=== PATIENT | male | born 1975 | race Hispanic/Latino ===

== ENCOUNTER 2021-04-03 13:47 | Emergency (ER) | payer SELFPAY ==
[2021-04-03] MEDS ORDERED: DIPHENHYDRAMINE 50 MG/ML VIAL ONE (14:31)
[2021-04-03] MEDS ORDERED: FAMOTIDINE 20 MG/2 ML VIAL IV ONE (14:31)
[2021-04-03] MEDS ORDERED: dexAMETHasone 10 MG/ML VIAL ONE (14:31)
[2021-04-03] MEDS ORDERED: NA CHLORIDE 0.9% 1,000 ML ONE (14:34)
[2021-04-03] MEDS ORDERED: METHYLPREDNISOLONE 125 MG INJ ONE (14:35)
[2021-04-03] MEDS ORDERED: ONDANSETRON 4 MG/2 ML VIAL ONE (16:20)
--- NOTE | 2021-04-03 17:10 | EDPHYS ---
Physician Documentation [facility] Name: Saúl Zhu Age: 45 yrs Sex: Male : 1975 Arrival Date: 04/03/2021 Time: 13:49 Bed 20 Private MD: ED Physician Yordan Sheth HPI: 04/03 14:42 This 45 yrs old Male presents to ER via Ambulatory with complaints of Bee rn Sting. 14:42 The patient presents with itching, rash. Onset: The symptoms/episode began/occurred rn just prior to arrival. Associated signs and symptoms: Pertinent positives: chest pain, hives, rash, Pertinent negatives: abdominal pain, Altered mental status shortness of breath, swelling, vomiting. Possible causes: bees. At home the patient or guardian has treated the symptoms with nothing. Severity of symptoms: At their worst the symptoms were moderate in the emergency department the symptoms are unchanged. The patient has experienced a previous episode. The patient has not recently seen a physician. Reports outside and was stung by bee on the left arm. Reports diffuse rash and itching. Reports had brief episode of chest tightness but has since resolved. No shortness of breath. No swelling or difficulty swallowing.. Historical: - Allergies: 14:02 No Known Allergies; vg1 - Home Meds: 14:02 None [Active]; vg1 - PMHx: 14:02 None; vg1 - Immunization history:: Adult Immunizations up to date, Client reports receiving the Tre \T\ Tre single-dose vaccine. - Social history:: Smoking status: Patient denies any tobacco usage or history of. - Family history:: not pertinent. - Hospitalizations: : No recent hospitalization is reported. ROS: 14:42 Constitutional: Negative for fever, chills, and weight loss, Eyes: Negative for injury, rn pain, redness, and discharge, ENT: Negative for injury, pain, and discharge, Neck: Negative for injury, pain, and swelling, Cardiovascular: Negative for chest pain, palpitations, and edema, Respiratory: Negative for shortness of breath, cough, wheezing, and pleuritic chest pain, Abdomen/GI: Negative for abdominal pain, nausea, vomiting, diarrhea, and constipation, Back: Negative for injury and pain, MS/Extremity: Negative for injury and deformity, Skin: Positive for rash and itching Neuro: Negative for headache, weakness, numbness, tingling, and seizure. Exam: 14:42 Constitutional: This is a well developed, well nourished patient who is awake, alert, rn and in no acute distress. Head/Face: Normocephalic, atraumatic. Eyes: Periorbital areas with no swelling, redness, or edema. ENT: Mucous membranes moist. No stridor Cardiovascular: Regular rate and rhythm. No pulse deficits. Respiratory: No increased work of breathing, no retractions or nasal flaring. Abdomen/GI: Soft, non-tender Skin: Diffuse urticaria. With excoriations MS/ Extremity: Pulses equal, no cyanosis. Neurovascular intact. Full, normal range of motion. Equal circumference. Neuro: Awake and alert, GCS 15 17:35 ECG was reviewed by the Attending Physician. rn Vital Signs: 13:59 BP 109 / 78; Pulse 92; Resp 20; Temp 98.1; Pulse Ox 95% ; Weight 90.72 kg; Height 5 ft. vg1 11 in. (180.34 cm); Pain 5/10; 14:30 BP 110 / 90; Pulse 76; Resp 18; Pulse Ox 95% ; Weight 90.72 kg; Height 5 ft. 11 in. tc5 (180.34 cm); 14:52 BP 120 / 88; Pulse 75; Resp 16; Pulse Ox 99% ; tc5 15:44 BP 118 / 84; Pulse 105; Resp 20; Pulse Ox 99% ; Pain 0/10; tc5 17:16 BP 110 / 78; Pulse 74; Resp 16; Pulse Ox 100% ; Pain 0/10; tc5 14:30 Body Mass Index 27.89 (90.72 kg, 180.34 cm) tc5 MDM: 14:05 Patient medically screened. rn 17:08 Differential diagnosis: urticaria, Acute allergic reaction. Data reviewed: vital signs, rn nurses notes, and as a result, I will discharge patient. Counseling: I had a detailed discussion with the patient and/or guardian regarding: the historical points, exam findings, and any diagnostic results supporting the discharge/admit diagnosis, the need for outpatient follow up, to return to the emergency department if symptoms worsen or persist or if there are any questions or concerns that arise at home. Response to treatment: the patient's symptoms have markedly improved after treatment, the patient's condition has returned to base line, the patient is now symptom free, and as a result, I will discharge patient. Special discussion: I discussed with the patient/guardian in detail that at this point there is no indication for admission to the hospital. It is understood, however, that if the symptoms persist or worsen the patient needs to return immediately for re-evaluation. 04/03 14:06 Order name: IV Start; Complete Time: 14:25 rn 04/03 15:54 Order name: PO challenge; Complete Time: 16:15 rn EC:35 Rate is 93 beats/min. Rhythm is regular. QRS [place] is Normal. IN interval is normal. QRS rn interval is normal. QT interval is normal. No Q waves. T waves are Normal. No ST changes noted. Clinical impression: Normal ECG. Interpreted by me. Reviewed by me. Administered Medications: 14:20 Drug: SOLU-Medrol (methylPrednisoLONE) 125 mg Route: IVP; Site: left antecubital; tc5 14:39 Follow up: Response: No adverse reaction; Marked relief of symptoms tc5 14:20 Drug: Benadryl (diphenhydrAMINE) 50 mg Route: IVP; Site: left antecubital; tc5 14:39 Follow up: Response: No adverse reaction; Marked relief of symptoms tc5 14:20 Drug: NS 0.9% 1000 ml Route: IV; Rate: 1000 ml; Site: left antecubital; tc5 14:20 Drug: Pepcid (famotidine) 20 mg Route: IVP; Site: left antecubital; tc5 14:39 Follow up: Response: No adverse reaction; Marked relief of symptoms tc5 16:05 Drug: Zofran (Ondansetron) 4 mg Route: IVP; Site: left antecubital; tc5 Disposition Summary: 04/03/21 17:09 Discharge Ordered Location: Home rn Problem: new rn Symptoms: have improved rn Condition: Stable rn Diagnosis - Allergic urticaria rn - Acute allergic reaction to bee sting rn Followup: rn - With: Private Physician - When: As needed - Reason: Recheck today's complaints, Re-evaluation by your physician Discharge Instructions: - Discharge Summary Sheet rn - Bee, Wasp, or Hornet Sting, Adult rn - Hives rn Forms: - Medication Reconciliation Form rn - Thank You Letter rn - Antibiotic contemporary or 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 - Prescription Opioid Use rn Prescriptions: - Prednisone 20 mg Oral Tablet - take 3 tablets by ORAL route once daily for 5 days; 15 tablet; Refills: 0, rn Product Selection Permitted Signatures: Yordan Sheth MD MD rn Garcia, Victoria RN RN vg1 Shanika Chase, RN RN tc5 Corrections: (The following items were deleted from the chart) 14:02 14:02 Home Meds: Unable to obtain; vg1 vg1 14:45 14:42 Constitutional: Negative for fever, chills, and weight loss, Eyes: Negative for rn injury, pain, redness, and discharge, Neck: Negative for injury, pain, and swelling, Cardiovascular: Negative for chest pain, palpitations, and edema, Respiratory: Negative for shortness of breath, cough, wheezing, and pleuritic chest pain, Abdomen/GI: Negative for abdominal pain, nausea, vomiting, diarrhea, and constipation, Back: Negative for injury and pain, MS/Extremity: Negative for injury and deformity, Skin: Positive for rash and itching Neuro: Negative for headache, weakness, numbness, tingling, and seizure, rn
--- NOTE | 2021-04-03 17:10 | ER ---
Nurse's Notes [facility] Name: Saúl Zhu Age: 45 yrs Sex: Male : 1975 Arrival Date: 04/03/2021 Time: 13:49 Bed 20 Private MD: Diagnosis: Allergic urticaria;Acute allergic reaction to bee sting Presentation: 04/03 13:59 Chief complaint: Friend and/or Co-Worker states: Pt was stung by a bee about 30 minutes vg1 ago on Left forearm. Brother stated right after the bee stung patient passed out for about two minutes. Pt denies difficulty swallowing but states Chest tightness. Upon inspection pt has rash on chest, ABD, and back. Coronavirus screen: Vaccine status: Patient reports receiving the 1st dose of the Covid vaccine. Ebola Screen: Patient negative for fever greater than or equal to 101.5 degrees Fahrenheit, and additional compatible Ebola Virus Disease symptoms. Onset: The symptoms/episode began/occurred today. Anaphylaxis evaluation, the patient reports or I have noted the following symptoms which indicate a significant risk of anaphylaxis: chest pain. Initial Sepsis Screen: Does the patient meet any 2 criteria? No. Patient's initial sepsis screen is negative. Does the patient have a suspected source of infection? No. Patient's initial sepsis screen is negative. Risk Assessment: Do you want to hurt yourself or someone else? Patient reports no desire to harm self or others. Onset of symptoms. 13:59 Method Of Arrival: Ambulatory vg1 13:59 Acuity: VALENT[place] 2 vg1 Triage Assessment: 14:02 General: Appears in no apparent distress. uncomfortable, Behavior is calm, cooperative. vg1 Pain: Complains of pain in dorsal aspect of left forearm. Derm: Skin is intact, Rash noted that is red, on back, chest and abdomen. Historical: - Allergies: 14:02 No Known Allergies; vg1 - Home Meds: 14:02 None [Active]; vg1 - PMHx: 14:02 None; vg1 - Immunization history:: Adult Immunizations up to date, Client reports receiving the Tre \T\ Tre single-dose vaccine. - Social history:: Smoking status: Patient denies any tobacco usage or history of. - Family history:: not pertinent. - Hospitalizations: : No recent hospitalization is reported. Screenin:04 Abuse screen: Denies threats or abuse. Denies injuries from another. Nutritional ss screening: No deficits noted. Tuberculosis screening: Never had TB. Fall Risk None identified. Assessment: 14:25 General: Appears distressed, Behavior is calm, cooperative, appropriate for age, pt tc5 reports stung by bee/wasp left fa 30 min tub tender. pt has redness and swelling to the upper body, states he has chest tightness. Pt brother reports pt passed out in the front seat of the truck for about [address] to [address] hospital, pt dont remember anything after telling brother he dont feel good. pt is a\T\o x 4 at this time.. Pain: Complains of pain in chest. Respiratory: Reports chest tightness. Derm: small red/purple spot LFA where pt states he was stung. there redness and swelling noted tot he upper body. 15:43 General: pt vomiting, states he was feeling nauseated handed emesis bag pt then tc5 vomited.. Vital Signs: 13:59 BP 109 / 78; Pulse 92; Resp 20; Temp 98.1; Pulse Ox 95% ; Weight 90.72 kg; Height 5 ft. vg1 11 in. (180.34 cm); Pain 5/10; 14:30 BP 110 / 90; Pulse 76; Resp 18; Pulse Ox 95% ; Weight 90.72 kg; Height 5 ft. 11 in. tc5 (180.34 cm); 14:52 BP 120 / 88; Pulse 75; Resp 16; Pulse Ox 99% ; tc5 15:44 BP 118 / 84; Pulse 105; Resp 20; Pulse Ox 99% ; Pain 0/10; tc5 17:16 BP 110 / 78; Pulse 74; Resp 16; Pulse Ox 100% ; Pain 0/10; tc5 14:30 Body Mass Index 27.89 (90.72 kg, 180.34 cm) tc5 ED Course: 13:49 Patient arrived in ED. mr 13:56 Shanika Chase, MARINA is Primary Nurse. tc5 14:01 Tj Weathers NP is PHCP. pm1 14:01 Yordan Sheth MD is Attending Physician. pm1 14:02 Triage completed. vg1 14:02 Arm band placed on. vg1 14:04 Patient has correct armband on for positive identification. Bed in low position. Call ss light in reach. Side rails up X2. equipment monitor phototypesetting on. Pulse ox on. NIBP on. 14:31 Inserted saline lock: 20 gauge in left antecubital area, using aseptic technique. Blood tc5 collected. 17:17 IV discontinued, intact, bleeding controlled, No redness/swelling at site. Pressure tc5 dressing applied. Administered Medications: 14:20 Drug: SOLU-Medrol (methylPrednisoLONE) 125 mg Route: IVP; Site: left antecubital; tc5 14:39 Follow up: Response: No adverse reaction; Marked relief of symptoms tc5 14:20 Drug: Benadryl (diphenhydrAMINE) 50 mg Route: IVP; Site: left antecubital; tc5 14:39 Follow up: Response: No adverse reaction; Marked relief of symptoms tc5 14:20 Drug: NS 0.9% 1000 ml Route: IV; Rate: 1000 ml; Site: left antecubital; tc5 14:20 Drug: Pepcid (famotidine) 20 mg Route: IVP; Site: left antecubital; tc5 14:39 Follow up: Response: No adverse reaction; Marked relief of symptoms tc5 16:05 Drug: Zofran (Ondansetron) 4 mg Route: IVP; Site: left antecubital; tc5 Outcome: 17:09 Discharge ordered by . rn 17:25 Patient left the ED. tc5 Signatures: Lida SernaetoYordan MD MD rn Smirch, Shelby, RN RN ss Tj Weathers, MOLASSES PREPARER MOLASSES PREPARER pm1 Tisha Loaiza RN RN vg1 Shanika Chase RN RN tc5 Corrections: (The following items were deleted from the chart) 14:02 14:02 Home Meds: Unable to obtain; vg1 vg1
[2021-04-03 17:32] VITALS: TEMP 98.1
[2021-04-03 17:38] VITALS: BP 110/78; O2SAT 100
--- NOTE | 2021-04-04 07:07 | EKG ---
Test Date: 2021-04-03 Test Time: 14:01:44 [employer]: YVAN MEASUREMENT RESULTS: Intervals: Rate: 93 OH: 124 QRSD: 110 QT: 382 QTc: 474 Hanna: P: 70 OH: 124 QRS: 70 T: 36 INTERPRETIVE STATEMENTS: Normal sinus rhythm Normal ECG No previous ECG available for comparison Electronically Signed On 04-04-21 07:04:38 CDT by Odilon Wright
== END 2021-04-03 17:25 | disposition home or self-care (01) ==
LOC: ER 13:47
DX: L50.0 Allergic urticaria (principal); T78.49XA Other allergy, initial encounter; W57.XXXA Bitten or stung by nonvenomous insect and other nonvenomous arthropods, initial encounter
CPT/HCPCS: 93005; 96374; 96375; 99284; J1100; J1200; J2405; J2930; J7030